=== PATIENT | male | born 1960 | race Two or more races ===

== ENCOUNTER 2024-12-23 12:45 | Inpatient (IN) | payer OTHER ==
[~2024-12-23] VITALS: Ht 182.9 cm; Wt 124.7 kg
--- NOTE | 2024-12-23 13:22 | NUR ---
SE RECIBE PACIENTE ALERTA Y ORIENTADO X3 REFIERE VENIR POR REFIERDO DE DR.ANGEL TOMAS PARA SER ADMIIIDO POR DX DE [facility] EN [facility].
[2024-12-23] MEDS ORDERED: METFORMIN HCL500 M3 (13:28)
[2024-12-23] MEDS ORDERED: GLIMEPIRIDE4 M1 PO (13:29)
[2024-12-23] MEDS ORDERED: SIMVASTATIN5 MG PO (13:30)
[2024-12-23] MEDS ORDERED: AMLODIPINE-OLM1 EAC2 (13:30)
[2024-12-23] MEDS ORDERED: FAMOtidine 10 MG/ML (4ML VIAL) IV ONE (16:30)
[2024-12-23] MEDS ORDERED: PIPERACILLIN/TAZOBACTAM SODIUM 3.375 GM VIAL IV ONE ×2 (16:30→16:34)
[2024-12-23] MEDS ORDERED: FAMOTIDINE/PF 20 MG/2 ML VIAL ONE (16:35)
[2024-12-23 16:43] LABS: BASO % 0.6 % (0.1-1.2); EOS # 0.28 (0.04-0.54); EOS % 2.1 % (0.7-7.0); LYMPH # 1.75 (1.18-3.74); LYMPH % 13.2 % (19.3-53.1); MEAN PLATELET VOLUME 9.90 fl (9.4-12.4); MONO # 1.48 (0.24-0.82); MONO % 11.2 % (4.7-12.5); NEUT # 9.51 (1.56-6.13); NEUT % 72.1 % (34.0-71.1); RED CELL DISTRIBUTION WIDTH 13.4 % (11.6-14.4)
[2024-12-23 17:01] LABS: INR 1.14
[2024-12-23 17:06] LABS: ALT/SGPT 34.0 U/L (12-78); AST/SGOT 27.0 U/L (15-37); BILIRUBIN TOTAL 0.27 mg/dL (0.3-1.2); BUN CREA RATIO 18.0 (7.0-25.0); CREATININE SERUM 1.45 mg/dL (0.70-1.30); GFR 49.31; GLOBULINA 5.1 G/DL (2.4-3.5); GLUCOSE FASTING 93.0 mg/dL (65-100); OSMOLALITY SERUM 278.0 MOSM/KG (275-295)
[2024-12-23] MEDS ORDERED: 0.9 % SODIUM CHLORIDE 1,000 ML IV SCH (18:45)
[2024-12-23] MEDS ORDERED: VANCOMYCIN HCL 1,000 MG VIAL IV SCH (18:48)
[2024-12-23] MEDS ORDERED: PIPERACILLIN/TAZOBACTAM SODIUM 2.25 GM in DEXTROSE 5 % IN WATER 50 ML IV SCH (18:49)
[2024-12-23] MEDS ORDERED: SIMVASTATIN 20 MG TABLET PO SCH (18:50)
--- NOTE | 2024-12-23 18:53 | NUR ---
SE EJECUTAN ORDENES MEDICAS EN MCCABE TOTALIDAD
[2024-12-23] MEDS ORDERED: ACETAMINOPHEN 500 MG GEL..CAP PO PRN (19:00)
[2024-12-23] MEDS ORDERED: INSULIN LISPRO 1,000 UNIT/10 ML UNITS SUBCUTANEO PRN (19:15)
[2024-12-23] MEDS ORDERED: DEXTROSE 50 % IN WATER 0.5 G/ML DISP.SYRIN IV PRN (19:15)
[2024-12-23] MEDS ORDERED: VANCOMYCIN HCL 1,000 MG VIAL ONE (20:46)
[2024-12-23 22:24] VITALS: BP 158/80
[2024-12-24 02:08] LABS: URINE APPEARANCE Turbid; URINE BILIRRUBIN Small (NEGATIVE); URINE BLOOD Negative; URINE COLOR Dark Yellow; URINE GLUCOSE Negative (NEGATIVE); URINE KETONE Trace (NEGATIVE); URINE LEUKOCYTE Trace; URINE NITRATE Negative; URINE PROTEIN 30 (NEGATIVE); URINE UROBILINOGEN 1.0 E.U./dl
[2024-12-24 02:12] VITALS: BP 137/77; O2SAT 95
[2024-12-24 02:12] LABS: URINE BACTERIA 74.6 uL (0.0-1933); URINE CAST 20.03 uL (0.0-1.40); URINE EPITHELIAL CELLS 42.2 uL (0.0-38.8); URINE RBC 4.4 uL (0.0-20.8); URINE WBC 38.6 uL (0.0-23.2)
[2024-12-24 03:24] LABS: URINE CRYSTALS MANY /HPF
[2024-12-24 08:36] VITALS: BP 160/72; O2SAT 96
[2024-12-24] MEDS ORDERED: AMLODIPINE BESYLATE 5 MG TABLET PO SCH (09:00)
[2024-12-24] MEDS ORDERED: FAMOTIDINE/PF 20 MG in 0.9 % SODIUM CHLORIDE 8 ML IV PUSH SCH (09:00)
[2024-12-24] MEDS ORDERED: SODIUM HYPOCHLORITE 1OZ TOP SCH (09:00)
[2024-12-24] MEDS ORDERED: ENOXAPARIN SODIUM 40 MG/0.4 ML SYRINGE SUBCUTANEO SCH (09:00)
[2024-12-24] MEDS ORDERED: VANCOMYCIN HCL 5 MG/ML REDILUIDO IV SCH (17:00)
[2024-12-24 17:50] VITALS: BP 148/69
[2024-12-24] MEDS ORDERED: PIPERACILLIN/TAZOBACTAM SODIUM 3.375 GM in DEXTROSE 5 % IN WATER 100 ML IV SCH (18:00)
[2024-12-25 02:38] VITALS: BP 133/74; O2SAT 94
[2024-12-25 07:07] LABS: BASO % 0.9 % (0.1-1.2); EOS # 0.31 (0.04-0.54); EOS % 3.2 % (0.7-7.0); LYMPH # 1.79 (1.18-3.74); LYMPH % 18.2 % (19.3-53.1); MEAN PLATELET VOLUME 10.50 fl (9.4-12.4); MONO # 1.12 (0.24-0.82); MONO % 11.4 % (4.7-12.5); NEUT # 6.40 (1.56-6.13); NEUT % 65.2 % (34.0-71.1); RED CELL DISTRIBUTION WIDTH 13.3 % (11.6-14.4)
[2024-12-25 07:26] LABS: ALT/SGPT 32.0 U/L (12-78); AST/SGOT 19.0 U/L (15-37); BILIRUBIN TOTAL 0.36 mg/dL (0.3-1.2); BUN CREA RATIO 14.0 (7.0-25.0); CREATININE SERUM 1.19 mg/dL (0.70-1.30); GFR 61.94; GLOBULINA 3.7 G/DL (2.4-3.5); GLUCOSE FASTING 133.0 mg/dL (65-100); OSMOLALITY SERUM 283.0 MOSM/KG (275-295)
[2024-12-25 07:35] LABS: BAND MAN 6.0 %; EOSINOPHIL MAN 2.0 %; LYMPHOCYTE MAN 14.0 %; MONOCYTE MAN 10.0 %; NEUTROPHILS MAN 68.0 %
[2024-12-25 08:28] VITALS: BP 150/76; O2SAT 98
[2024-12-25] MEDS ORDERED: MAGNESIUM SULFATE IN WATER 50 ML IV SCH (12:00)
[2024-12-25 18:59] VITALS: BP 146/77
[2024-12-26 02:32] VITALS: BP 165/79; O2SAT 98
[2024-12-26] MEDS ORDERED: POVIDONE-IODINE 118 ML BOTT TOP ONE (07:35)
[2024-12-26] MEDS ORDERED: ISOPROPYL ALCOHOL 30 ML OUNCE TOP ONE (07:35)
[2024-12-26] MEDS ORDERED: HYDROGEN PEROXIDE 473 ML BOTTLE TOP ONE (07:39)
[2024-12-26] MEDS ORDERED: LIDOCAINE HCL 1%/EPINEPHRINE 20ML VIAL IJ ONE (07:55)
[2024-12-26] MEDS ORDERED: BUPIVACAINE HCL/MPF 0.5% 30ML VIAL ONE (07:55)
[2024-12-26] MEDS ORDERED: 0.9 % SODIUM CHLORIDE 1,000 ML IV SCH (08:30)
[2024-12-26] MEDS ORDERED: ONDANSETRON HCL 2 MG/ML VIAL IV PRN (08:30)
[2024-12-26] MEDS ORDERED: KETOROLAC TROMETHAMINE 30 MG VIAL IV PRN (08:45)
[2024-12-26 08:54] VITALS: BP 144/71; O2SAT 96
[2024-12-26] MEDS ORDERED: 0.9 % SODIUM CHLORIDE 10 ML VIAL IJ ONE (16:12)
[2024-12-26] MEDS ORDERED: CIPROFLOXACIN IN 5 % DEXTROSE 400 MG/200 ML PIGGYBAG IV SCH (17:00)
[2024-12-26 18:50] VITALS: BP 159/76
[2024-12-27 01:55] VITALS: BP 131/74; O2SAT 97
[2024-12-27 07:00] VITALS: BP 116/65; O2SAT 96
[2024-12-27 18:20] VITALS: BP 156/79; O2SAT 98
[2024-12-28 01:48] VITALS: BP 137/71; O2SAT 97
[2024-12-28 07:00] VITALS: BP 178/96; O2SAT 94
[2024-12-28 08:42] LABS: BUN CREA RATIO 10.0 (7.0-25.0); CREATININE SERUM 1.15 mg/dL (0.70-1.30); GFR 64.44; GLUCOSE FASTING 153.0 mg/dL (65-100); OSMOLALITY SERUM 277.0 MOSM/KG (275-295)
[2024-12-28 16:00] VITALS: BP 163/84; O2SAT 96
[2024-12-28 17:35] LABS: BASO % 1.0 % (0.1-1.2); EOS # 0.32 (0.04-0.54); EOS % 3.5 % (0.7-7.0); LYMPH # 2.16 (1.18-3.74); LYMPH % 23.7 % (19.3-53.1); MEAN PLATELET VOLUME 10.00 fl (9.4-12.4); MONO # 1.00 (0.24-0.82); MONO % 11.0 % (4.7-12.5); NEUT # 5.27 (1.56-6.13); NEUT % 57.8 % (34.0-71.1); RED CELL DISTRIBUTION WIDTH 13.2 % (11.6-14.4)
[2024-12-29 01:48] VITALS: BP 145/80; O2SAT 96
[2024-12-29 10:02] VITALS: BP 166/80; O2SAT 98
[2024-12-29 18:12] VITALS: BP 151/70
[2024-12-30 00:38] VITALS: BP 137/79; O2SAT 98
[2024-12-30 09:02] VITALS: BP 130/77; O2SAT 95
[2024-12-30] MEDS ORDERED: LEVOFLOXACIN750 MG PO (09:14)
== END 2024-12-30 12:06 | disposition home or self-care (01) | DRG 617 ==
LOC: ER 12:45 → MEDJ 19:46
PROVIDERS: General Practice; Internal Medicine; Internal Medicine Infectious Disease; Surgery; ADMIT Internal Medicine; ATTEND Internal Medicine
PROC: BQ3LZZZ Magnetic Resonance Imaging (MRI) of Right Foot (ICD-10-PCS; 2024-12-24)
PROC: B44HZZZ Ultrasonography of Bilateral Lower Extremity Arteries (ICD-10-PCS; 2024-12-24)
PROC: 0Y6R0Z0 Detachment at Right 2nd Toe, Complete, Open Approach (ICD-10-PCS; principal; 2024-12-26 10:15)
DX: E11.621 Type 2 diabetes mellitus with foot ulcer (principal); E11.52 Type 2 diabetes mellitus with diabetic peripheral angiopathy with gangrene; I96 Gangrene, not elsewhere classified; M86.171 Other acute osteomyelitis, right ankle and foot; L97.513 Non-pressure chronic ulcer of other part of right foot with necrosis of muscle; Z79.4 Long term (current) use of insulin; L03.031 Cellulitis of right toe; B96.5 Pseudomonas (aeruginosa) (mallei) (pseudomallei) as the cause of diseases classified elsewhere; N17.9 Acute kidney failure, unspecified; E78.5 Hyperlipidemia, unspecified; I12.9 Hypertensive chronic kidney disease with stage 1 through stage 4 chronic kidney disease, or unspecified chronic kidney disease; E11.22 Type 2 diabetes mellitus with diabetic chronic kidney disease; N18.9 Chronic kidney disease, unspecified
CPT/HCPCS: 73725